=== PATIENT | male | born 1965 | race Caucasian/White ===

== ENCOUNTER 2017-04-03 15:13 | Emergency (ER) | payer MEDICAID ==
[~2017-04-03] VITALS: Ht 170.2 cm; Wt 66.0 kg
[~2017-04-03 15:13] MED LIST: CYCL-259 PO; HYDR-3245 PO; MELO7.5T31 PO; NONE PER PT; OXYC-307 PO; SULF-169 PO; TAMS0.4C2 PO
[2017-04-03 15:51] LABS: HEMOGLOBIN 17.1 g/dL (13.7-18.0); WHITE BLOOD COUNT 6.3 x10^3/uL (3.4-10)
[2017-04-03 15:59] LABS: ASPARTATE AMINO TRANSFERASE 14 U/L (15-37); BLOOD UREA NITROGEN 12 mg/dL (7-18)
[2017-04-03] MEDS ORDERED: HYDROmorphone 1 MG/ML, 1ML IM ONE (16:00)
[2017-04-03 16:01] LABS: ACETAMINOPHEN < 2 mcg/mL (10-30)
[2017-04-03] MEDS ORDERED: HYDROmorphone 1 MG/ML, 1ML ONE (16:02)
[2017-04-03 16:59] VITALS: BP 128/92
[2017-04-03] MEDS ORDERED: IPRA0.2S35 INH (17:16)
[2017-04-03] MEDS ORDERED: GABA600T2 PO (17:16)
[2017-04-03] MEDS ORDERED: FLUT1DIS3 INH (17:16)
[2017-04-03] MEDS ORDERED: HYDROmorphone 2 MG/ML, 1ML IM ONE (19:30)
[2017-04-03] MEDS ORDERED: HYDROmorphone 2 MG/ML, 1ML ONE (19:34)
== END 2017-04-03 19:45 | disposition home or self-care (01) ==
LOC: ED 19:39
DX: R45.851 Suicidal ideations (principal); G89.29 Other chronic pain; M54.9 Dorsalgia, unspecified; J44.9 Chronic obstructive pulmonary disease, unspecified; F32.9 Major depressive disorder, single episode, unspecified
CPT/HCPCS: 36415; 80053; 80307; 80329; 85025; 96372; 99284; J1170; G0479; G0480